=== PATIENT | male | born 1985 | race Caucasian/White ===

== ENCOUNTER 2016-10-10 18:58 | Emergency (ER) | payer BC ==
[2015-12-19 12:16] VITALS: BMI 23.5
[~2016-10-10 18:58] MED LIST: AMBIEN10 MG PO; ATIVAN1 MG PO; BACTRIM 400-801 TAB PO; BACTRIM DS TABL1 TAB PO; CLEOCIN HCL300 MG PO; FLORAJEN3 CAPS460 MG PO; HYZAAR 50-12.51 TAB PO; MULTIPLE VITAMI1 TA1 PO; NICODERM C1 PATCH .1 TRANSDERM; OMEPRAZOLE20 M1 PO; OXYCODONE HCL10 MG PO; PAXIL40 MG PO
[2016-10-10 19:33] LABS: BASOPHILS 0.6 % (0-2); EOSINOPHILS 4.4 % (0-7); HEMATOCRIT 39.6 % (42.0-54.0); HEMOGLOBIN 14.3 g/dL (13.5-17.5); IMMATURE GRANULOCYTES 0.2 % (0-5); LYMPHOCYTES 38.1 % (15-50); MCH 32.8 pg (26.0-34.0); MCHC 36.1 g/dL (31.0-37.0); MCV 90.8 fL (80.0-100.0); MEAN PLATELET VOLUME 9.6 fL (7.4-10.4); MONOCYTES 9.9 % (2-11); NEUTROPHILS 46.8 % (40-80); PLATELET COUNT 231 10x3/uL (130-400); RBC 4.36 10x6/uL (4.20-6.10); RDW 11.8 % (11.5-14.5); WBC 9.9 10x3/uL (4.8-10.8)
[2016-10-10 19:59] LABS: ALBUMIN 4.3 g/dL (3.4-5.0); ALKALINE PHOSPHATASE 71 U/L (46-116); ALT (SGPT) 51 U/L (10-68); BILIRUBIN - TOTAL 0.43 mg/dL (0.2-1.3); CALC OSMOLALITY 278 mosm/kg (275-300); CALCIUM 9.5 mg/dL (8.5-10.1); CARBON DIOXIDE 23.1 mmol/L (21.0-32.0); CHLORIDE - SERUM 103 mmol/L (98-107); CHOL - HDL RATIO 7.8 ratio (2.3-4.9); CHOLESTEROL, TOTAL 172 mg/dL (0-200); CKMB 0.5 U/L (0.0-3.6); CREATINE KINASE 167 UL (21-232); CREATININE - SERUM 1.2 mg/dL (0.6-1.3); GLUCOSE 119 mg/dL (74-106); HDL CHOLESTEROL 22 mg/dL (32-96); PROTEIN - SERUM 7.7 g/dL (6.4-8.2); SODIUM 138 mmol/L (136-145); UREA NITROGEN 19 mg/dL (7-18); eGFR NON AFRICAN AMERICAN 74 mL/min (90-120)
[2016-10-10 20:02] LABS: POTASSIUM - SERUM 2.9 mmol/L (3.5-5.1); TRIGLYCERIDE 683 mg/dL (30-200); TROPONIN-I < 0.017 ng/mL (0.000-0.060)
== END 2016-10-10 21:14 | disposition home or self-care (01) ==
LOC: D.ER 18:58
PROVIDERS: Emergency Medicine
DX: R07.89 Other chest pain (principal); E87.6 Hypokalemia; K21.9 Gastro-esophageal reflux disease without esophagitis; I10 Essential (primary) hypertension; F17.200 Nicotine dependence, unspecified, uncomplicated

== ENCOUNTER 2016-10-25 18:11 | Emergency (ER) | payer MEDICAID ==
[2015-12-19 12:16] VITALS: BMI 23.5
[2016-10-25 18:33] LABS: BASOPHILS 0.5 % (0-2); HEMATOCRIT 40.2 % (42.0-54.0); HEMOGLOBIN 14.3 g/dL (13.5-17.5); IMMATURE GRANULOCYTES 0.2 % (0-5); LYMPHOCYTES 35.3 % (15-50); MCH 32.6 pg (26.0-34.0); MCHC 35.6 g/dL (31.0-37.0); MCV 91.8 fL (80.0-100.0); MEAN PLATELET VOLUME 9.4 fL (7.4-10.4); MONOCYTES 10.9 % (2-11); NEUTROPHILS 49.1 % (40-80); PLATELET COUNT 253 10x3/uL (130-400); RBC 4.38 10x6/uL (4.20-6.10); RDW 12.1 % (11.5-14.5); WBC 9.7 10x3/uL (4.8-10.8)
[2016-10-25 18:49] LABS: ALBUMIN 4.2 g/dL (3.4-5.0); ALKALINE PHOSPHATASE 60 U/L (46-116); ALT (SGPT) 65 U/L (10-68); BILIRUBIN - TOTAL 0.39 mg/dL (0.2-1.3); CALC OSMOLALITY 284 mosm/kg (275-300); CALCIUM 9.4 mg/dL (8.5-10.1); CARBON DIOXIDE 23.5 mmol/L (21.0-32.0); CHLORIDE - SERUM 106 mmol/L (98-107); CREATININE - SERUM 1.1 mg/dL (0.6-1.3); GLUCOSE 102 mg/dL (74-106); POTASSIUM - SERUM 3.2 mmol/L (3.5-5.1); PROTEIN - SERUM 7.7 g/dL (6.4-8.2); SODIUM 143 mmol/L (136-145); UREA NITROGEN 13 mg/dL (7-18); eGFR NON AFRICAN AMERICAN 82 mL/min (90-120)
[2016-10-25 19:00] LABS: CHOL - HDL RATIO 7.5 ratio (2.3-4.9); CHOLESTEROL, TOTAL 180 mg/dL (0-200); CKMB 0.6 U/L (0.0-3.6); CREATINE KINASE 201 UL (21-232); HDL CHOLESTEROL 24 mg/dL (32-96); TRIGLYCERIDE 445 mg/dL (30-200)
[2016-10-25 19:03] LABS: TROPONIN-I < 0.017 ng/mL (0.000-0.060)
== END 2016-10-25 20:12 | disposition home or self-care (01) ==
LOC: D.ER 18:11
PROVIDERS: Emergency Medicine
DX: R07.89 Other chest pain (principal); K21.9 Gastro-esophageal reflux disease without esophagitis; I10 Essential (primary) hypertension; E87.6 Hypokalemia; F17.200 Nicotine dependence, unspecified, uncomplicated

== ENCOUNTER 2017-05-02 16:12 | Emergency (ER) | payer MEDICAID ==
[2015-12-19 12:16] VITALS: BMI 23.5
== END 2017-05-02 22:10 | disposition home or self-care (01) ==
LOC: D.ER 16:12
DX: R51 Headache (principal); K21.9 Gastro-esophageal reflux disease without esophagitis; I10 Essential (primary) hypertension

== ENCOUNTER 2018-06-28 16:54 | Emergency (ER) | payer SELFPAY ==
[~2018-06-28] VITALS: Ht 182.9 cm; Wt 84.1 kg
[2018-06-28 17:29] VITALS: Ht 182.9 cm; Wt 84.1 kg
[2018-06-28 17:52] LABS: BASOPHILS 0.4 % (0-2); EOSINOPHILS 2.2 % (0-7); HEMATOCRIT 43.7 % (42.0-54.0); HEMOGLOBIN 15.6 g/dL (13.5-17.5); IMMATURE GRANULOCYTES 0.2 % (0-5); LYMPHOCYTES 22.8 % (15-50); MCH 32.2 pg (26.0-34.0); MCHC 35.7 g/dL (31.0-37.0); MCV 90.3 fL (80.0-100.0); MEAN PLATELET VOLUME 9.4 fL (7.4-10.4); MONOCYTES 5.7 % (2-11); NEUTROPHILS 68.7 % (40-80); PLATELET COUNT 288 10x3/uL (130-400); RBC 4.84 10x6/uL (4.20-6.10); WBC 11.7 10x3/uL (4.8-10.8)
[2018-06-28 18:07] LABS: ALBUMIN 4.4 g/dL (3.4-5.0); ALKALINE PHOSPHATASE 63 U/L (46-116); ALT (SGPT) 24 U/L (10-68); AMYLASE - SERUM 37 U/L (25-115); BILIRUBIN - TOTAL 0.37 mg/dL (0.2-1.3); CALC OSMOLALITY 274 mosm/kg (275-300); CARBON DIOXIDE 28.5 mmol/L (21.0-32.0); CHLORIDE - SERUM 101 mmol/L (98-107); CREATININE - SERUM 1.1 mg/dL (0.6-1.3); GLUCOSE 98 mg/dL (74-106); LIPASE 227 U/L (73-393); POTASSIUM - SERUM 3.5 mmol/L (3.5-5.1); PROTEIN - SERUM 8.1 g/dL (6.4-8.2); SODIUM 138 mmol/L (136-145); UREA NITROGEN 11 mg/dL (7-18); eGFR NON AFRICAN AMERICAN 82 mL/min (90-120)
[2018-06-28 19:01] LABS: APPEARANCE CLEAR (CLEAR); BILIRUBIN NEGATIVE (NEGATIVE); COLOR YELLOW (YELLOW); GLUCOSE NEGATIVE (NEGATIVE); KETONE NEGATIVE (NEGATIVE); NITRITE NEGATIVE (NEGATIVE); PROTEIN NEGATIVE (NEGATIVE); UROBILINOGEN NORMAL (NORMAL)
[2018-06-28] MEDS ORDERED: ZOFRAN ODT4 MG/UDTAB PO (21:20)
[2018-06-28] MEDS ORDERED: BENTYL 20 MG TA20 MG PO (21:20)
[2018-06-28 21:35] VITALS: BP 129/78
== END 2018-06-28 21:43 | disposition home or self-care (01) ==
LOC: D.ER 16:54
PROVIDERS: Family Medicine
DX: A08.4 Viral intestinal infection, unspecified (principal); R11.2 Nausea with vomiting, unspecified

== ENCOUNTER 2019-01-20 17:37 | Emergency (ER) | payer OTHER ==
[~2019-01-20] VITALS: Ht 182.9 cm; Wt 88.6 kg
[~2019-01-20 17:37] MED LIST changes: +BENTYL 20 MG TA20 MG PO; +ZOFRAN ODT4 MG/UDTAB PO
[2019-01-20 17:49] VITALS: Ht 182.9 cm; Wt 88.6 kg
[2019-01-20 18:05] LABS: BASOPHILS 0.5 % (0-2); EOSINOPHILS 4.3 % (0-7); HEMATOCRIT 42.4 % (42.0-54.0); HEMOGLOBIN 14.9 g/dL (13.5-17.5); IMMATURE GRANULOCYTES 0.1 % (0-5); LYMPHOCYTES 34.7 % (15-50); MCH 32.7 pg (26.0-34.0); MCHC 35.1 g/dL (31.0-37.0); MCV 93.2 fL (80.0-100.0); MEAN PLATELET VOLUME 9.1 fL (7.4-10.4); MONOCYTES 11.9 % (2-11); NEUTROPHILS 48.5 % (40-80); PLATELET COUNT 283 10x3/uL (130-400); RBC 4.55 10x6/uL (4.20-6.10); RDW 12.7 % (11.5-14.5); WBC 8.3 10x3/uL (4.8-10.8)
[2019-01-20 18:14] LABS: APTT 22.2 SECONDS (22.8-39.4); INR 0.95 (0.85-1.17); PROTIME 12.2 SECONDS (11.6-15.0)
[2019-01-20 18:17] LABS: ALBUMIN 3.9 g/dL (3.4-5.0); ALKALINE PHOSPHATASE 53 U/L (46-116); ALT (SGPT) 94 U/L (10-68); CALC OSMOLALITY 277 mosm/kg (275-300); CALCIUM 8.6 mg/dL (8.5-10.1); CARBON DIOXIDE 28.5 mmol/L (21.0-32.0); CHLORIDE - SERUM 105 mmol/L (98-107); GLUCOSE 111 mg/dL (74-106); POTASSIUM - SERUM 3.5 mmol/L (3.5-5.1); PROTEIN - SERUM 7.1 g/dL (6.4-8.2); SODIUM 140 mmol/L (136-145); UREA NITROGEN 6 mg/dL (7-18); eGFR NON AFRICAN AMERICAN > 90 mL/min (90-120)
[2019-01-20 18:28] LABS: CKMB 1.6 U/L (0.0-3.6); CREATINE KINASE 250 UL (21-232); MAGNESIUM - SERUM 1.7 mg/dL (1.8-2.4)
[2019-01-20 18:30] LABS: TROPONIN-I < 0.017 ng/mL (0.000-0.060)
[2019-01-20 18:52] LABS: THYROID STIMULATING HORMONE 0.76 uIU/mL (0.36-3.74)
[2019-01-20] MEDS ORDERED: PROTONIX20 MG PO (19:11)
[2019-01-20 19:39] VITALS: BP 119/72
== END 2019-01-20 19:39 | disposition home or self-care (01) ==
LOC: D.ER 17:37
PROVIDERS: Family Medicine
DX: R07.9 Chest pain, unspecified (principal)

== ENCOUNTER 2019-01-22 17:40 | Observation (INO) | payer OTHER ==
[~2019-01-22] VITALS: Ht 182.9 cm; Wt 88.6 kg
--- NOTE | ~2019-01-22 | HEMODYNAMI ---
PATIENT:TACHO TREJO MEDICAL RECORD: [id number] : 83 LOCATION:[facility] D.2122 [facility]# [id number] ADMISSION DATE: 01/22/19 Generatedon:01/23/201912:03 Patient name: TACHO TREJO Patient #: [id number] SSN: [id number] : 1985 Date of study: 01/23/2019 Page: Of Hemodynamic Procedure Report Patient Data Patient Demographics Procedure consent was obtained First Name: TACHO Gender: Male Last Name: NEIL : 1985 Middle Initial: DAYSI Age: 33 year(s) Patient #: [id number] Race: SSN: [id number] Additional ID: [id number] Contact details [address]: [address] [place] [address] State: [place] City: [place] Zip code: [address] Past Medical History Allergies: No known allergies Admission Admission Data Admission Date: 01/22/2019 Admission Time: 21:34 Arrival Date: 01/23/2019 Arrival Time: 10:45 Admit Source: Emergency Insurance Payor: Private department health insurance Room #: D.2122 [facility] #: [id number] Height (in.): 72 BSA: 2.11 (m2) Height (cm.): 182.88 BMI: 26.45 (kg/m2) Weight (lbs.): 195 Weight (kg.): 88.45 Lab Results Lab Result Date: 01/23/2019 Lab Result Time: 0:00 Biochemistry Name Units Result Min Max BUN mg/dl 9 --(*---)-- 7 18 eGFR ml/min 81 *-(----)-- 90 120 NONAFRICAN CBC Name Units Result Min Max Hemoglobin g/dl 14.4 --(*---)-- 13.5 17.5 Procedure Procedure Types Cath Procedure Diagnostic Procedure C LH w/Coronaries Sedation Charges Moderate Sedation up to 15 minutes Procedure Description Procedure Date Procedure Date: 01/23/2019 Procedure Start Time: 11:43 Procedure End Time: 11:58 Procedure Staff Name Function Pipo Pinto MD Performing Physician Emeka Brown RT Monitor Harriet Serrato RT Monitor Shanique Hurley RN Nurse Betsy Dangelo RT Scrub Indication Angina Chest pain Procedure Data Cath Procedure Fluoroscopy Diagnostic fluoroscopy Total fluoroscopy Time: 1.7 time: 1.7 min min Diagnostic fluoroscopy Total fluoroscopy dose: dose: 135.55 mGy 135.55 mGy Contrast Material Contrast Material Type Amount (ml) Isovue 300 47 Entry Location Entry Primary Successful Side Size Upsize Upsize Entry Closure Neely ccessful Closure Location (Fr) 1 (Fr) 2 (Fr) Remarks Device Remarks Radial Right 6 Fr Mechanical artery Short Compression Estimated blood loss: 10 ml Diagnostic catheters Device Type Used For End Catheter Placement DIAGNOSTIC Enterprise 110cm 5 Procedure Fr catheter ([id number]) Procedure Complications No complications Procedure Medications Medication Administration Route Dosage 0.9% NaCl I.V. 100 ml/hr Oxygen etCO2 Nasal cannula 2 l/min Lidocaine 2% added to field 20 Heparin Flush Bag added to field 2 bags (1000units/500ml NS) Radial Cocktail added to field 1 syringe (Verapamil 2mg/Nitro 400mcg/Heparin 1500units) Versed I.V. 2 mg Fentanyl I.V. 100 mcg Versed I.V. 2 mg Fentanyl I.V. 50 mcg Fentanyl I.V. 50 mcg Hemodynamics Rest BSA: 2.11 (m2) HGB: 14.4 (g/dl) O2 Consumption: Estimated: 273.25 (ml/min) O2 Co nsumption indexed: Estimated:129.5 (ml/min/m) Heart Rate: 84 (bpm) Pressure Samples Time Site Value (mmHg) Purpose Heart Use Rate(bpm) 11:48 LV 104/33,16 Snapshot 107 11:48 AO 109/75(89) Pullback 85 11:48 LV 114/12,17 Pullback 85 Gradients Valve Time Site 1 Site 2 Mean SEP/DFP Peak To Heart Use (mmHg) (sec/min) Peak Rate (mmHg) (bpm) Aortic 11:48 LV AO 9 14 5 85 114/12,17 109/75(89) Calculations Valve P-P Mean Valve Index Valve Source Name Gradient Area Flow (cm2) Aortic 5 9 5 9 Snapshots Pre Cath Intra NCS Post Cath Vital Signs Time Heart Resp SPO2 etCO2 NIBP (mmHg) Rhythm Pain Sedation Rate (ipm) (%) (mmHg) Status Level (bpm) 10:57:33 84 17 99 35.5 143/91(122) NSR 0 (11) 10(A) , No pain 11:01:44 80 16 98 45.3 128/87(101) NSR 0 (11) 10(A) , No pain 11:05:58 73 16 96 39.2 128/74(97) NSR 0 (11) 10(A) , No pain 11:10:10 73 17 96 57.4 135/80(97) NSR 0 (11) 10(A) , No pain 11:14:22 77 18 97 57.4 142/86(107) NSR 0 (11) 10(A) , No pain 11:18:38 76 19 96 57.4 137/75(110) NSR 0 (11) 10(A) , No pain 11:22:54 81 19 98 23.4 135/80(113) NSR 0 (11) 10(A) , No pain 11:27:02 77 16 98 55.9 140/89(103) NSR 0 (11) 10(A) , No pain 11:31:18 76 19 97 60.4 136/76(100) NSR 0 (11) 10(A) , No pain 11:35:30 81 17 98 61.9 138/78(117) NSR 0 (11) 10(A) , No pain 11:39:42 84 17 98 61.2 133/88(107) NSR 0 (11) 10(A) , No pain 11:43:56 82 11 99 57.4 133/71(114) NSR 0 (11) 10(A) , No pain 11:48:08 90 10 98 60.4 119/82(91) NSR 0 (11) 10(A) , No pain 11:52:18 93 11 97 43.8 131/76(100) NSR 0 (11) 10(A) , No pain 11:56:28 90 13 97 47.5 130/73(100) NSR 0 (11) 10(A) , No pain Medications Time Medication Route Dose Verified Delivered Reason Notes E ffectiveness by by 10:56:38 0.9% NaCl I.V. 100 Pipo Shanique used for ml/hr Blair Xavi procedure MD VICTORIA 10:56:45 Oxygen etCO2 2 l/min Pipo Dingyla used for Nasal Blair Xavi procedure cannula MD VICTORIA 10:56:50 Lidocaine 2% added 20ml Pipo Foss for local to vial Blair Blair anesthetic field MD CASTLE 10:56:54 Heparin Flush added 2 bags Pipo Foss used for Bag to [facility] procedure (1000units/500ml field MD [place] NS) 10:56:59 Radial Cocktail added 1 Pipo Foss used for (Verapamil to syringe Blair Blair procedure 2mg/Nitro field MD [place] 400mcg/Heparin 1500units) 11:42:14 Versed I.V. 2 mg Pipo Shanique for BlairGideon Hurley sedation MD VICTORIA 11:42:20 Fentanyl I.V. 100 mcg Pipo Dingyla for BlairGideon Hurley sedation MD VICTORIA 11:47:10 Versed I.V. 2 mg Pipo Dingyla for BlairGideon Hurley sedation MD VICTORIA 11:47:15 Fentanyl I.V. 50 mcg Pipo Dingyla for BlairGideon Hurley sedation MD VICTORIA 11:51:29 Fentanyl I.V. 50 mcg Pipo Shanique for BlairGideon Hurley sedation MD VICTORIAtechnology and engineering teacher Log Time Note 10:15:14 Diagnostic Cath Status : Urgent 10:16:28 Indication : Angina 10:35:08 Shanique Hurley RN sent for patient. Start room use. 10:43:24 Indication : Chest pain 10:44:27 Admit Source: Emergency department 10:45:04 Procedure Status Urgent Heart Cath (IP). 10:45:31 Time tracking: Regular hours (M-F 7:00 - 5:00) 10:45:37 Plan of Care:Hemodynamics will remain stable., Cardiac rhythm will remain stable., Comfort level will be maintained., Respiratory function will remain adequate., Patient/ family verbilizes understanding of procedure., Procedure tolerated without complication., Recovers from procedure without complications.. 10:46:39 Lab Result : Hemoglobin 14.4 g/dl 10:46:39 Lab Result : eGFR NONAFRICAN 81 ml/min 10:46:39 Lab Result : BUN 9 mg/dl 10:47:06 Arrival Date: 01/23/2019 10:45:00 AM 10:47:23 Insurance Payor : Private health insurance 10:47:46 Patient Height : 72 inches 10:48:12 Patient Weight : 195 lbs 10:49:00 Patient received from Med II to CCL 3 Alert and oriented. Tansferred to table in Supine position. 10:49:08 Signed procedure consent form obtained from patient. 10:49:09 Warm blankets applied, and jose hugger turned on for patient comfort. 10:49:10 Correct patient and procedure confirmed by team. 10:49:11 ECG and BP/O2 sat monitors applied to patient. 10:56:28 Vital chart was started 10:56:38 0.9% NaCl 100 ml/hr I.V. was administered by Shanique Hurley RN; used for procedure; Verbal order read back and verified. 10:56:45 Oxygen 2 l/min etCO2 Nasal cannula was administered by Shanique Hurley RN ; used for procedure; Verbal order read back and verified. 10:56:50 Lidocaine 2% 20ml vial added to field was administered by Pipo Pinto MD; for local anesthetic; Verbal order read back and verified. 10:56:54 Heparin Flush Bag (1000units/500ml NS) 2 bags added to field was administered by Pipo Pinto MD; used for procedure; Verbal order read back and verified. 10:56:59 Radial Cocktail (Verapamil 2mg/Nitro 400mcg/Heparin 1500units) 1 syring e added to field was administered by Pipo Pinto MD; used for procedure; Verbal order read back and verified. 10:59:11 Baseline sample Acquired. 10:59:18 Rhythm: sinus rhythm 10:59:42 Baseline sample Acquired. 10:59:48 Full Disclosure recording started 10:59:49 - 11:00:27 H&P Date Dictated: 01/23/2019 Within 30 days and on chart.. 11:00:29 Pre-procedure instructions explained to patient. 11:05:04 Pre-op teaching completed and patient verbalized understanding. 11:05:33 Family in patients room. 11:05:47 Patient NPO since Midnight. 11:05:59 Patient allergic to No known allergies 11:06:03 Is the patient allergic to Iodine/contrast media? No. 11:06:12 Is patient on blood thinner?No 11:06:39 ACC The patient was administered the following blood thiners within the last 24 hours: None 11:07:00 Patient diabetic? No. 11:07:04 ----Pre-sedation anethsthesia assessment.---- 11:07:12 Previous problem with sedation/anesthesia? No ? 11:07:15 Snore? Yes 11:07:17 Sleep apnea? No 11:07:19 Deviated septum? No 11:07:21 Opens mouth fully? Yes 11:07:22 Sticks out tongue? Yes 11:07:36 Airway obstruction? Yes asthma as child 11:07:42 Dentures? No ? 11:07:50 Pre procedure: right dorsailis pedis pulse 2+ Normal; easily identifiable; not easily obliterated 11:08:07 Modified Kel's test Radial < 7 seconds 11:08:16 Patient pain scale 0/10 ?. 11:09:06 IV patent on arrival in left forearm with 0.9% NaCl at [facility]. 11:09:18 Lab results completed and on chart. 11:09:23 Right Radial & Right Groin area was prepped with chlora-prep and draped in sterile fashion 11:09:45 Alarms reviewed by R. N. 11:09:46 Sharps counted by scrub and verified by R.N. 11:12:07 Use device set Radial Dx or PCI 11:12:10 ACIST Syringe (67425) opened to sterile field. 11:12:11 Medline Cath Pack ([id number]) opened to sterile field. 11:12:12 Bag Decanter () opened to sterile field. 11:12:13 ACIST Hand Control (25422) opened to sterile field. 11:12:14 ACIST Manifold (36741) opened to sterile field. 11:12:16 Tegaderm 4 x 4 (1626W) opened to sterile field. 11:12:18 MBrace Wrist Support ([id number]) opened to sterile field. 11:12:25 EMERALD Guide Wire (240-969) opened to sterile field. 11:12:27 SHEATH 6FR MARQUIS (9931067) opened to sterile field. 11:18:15 2) 60-89 Mildly reduced kidney function, and other findings (as for stage 1) point to kidney disease. 11:18:22 Maximum allowable contrast dose (3.7 X eGFR X 0.75)224 ml. 11:27:41 Zero performed for pressure channel P1 11:40:27 Physician arrived 11:40:28 --------ALL STOP TIME OUT------ 11:40:29 Final Timeout: patient, procedure, and site verified with staff and physician. All members of the team are in agreement. 11:40:32 Right Radial & Right Groin site verified by team. 11:40:38 Fire Safety Assessment: A--An alcohol-based skin anteseptic being used preoperatively., C--Open oxygen or nitrous oxide is being used., D--An ESU, laser, or fiber-optic light is being used. 11:40:51 Physical assessment completed. ASA score P 2 - A patient with mild systemic disease as per Pipo Pinto MD. 11:41:00 Sedation plan: IV Moderate Sedation Medication:Versed, Fentanyl 11:42:14 Versed 2 mg I.V. was administered by Shanique Hurley RN; for sedation; Verbal order read back and verified. 11:42:20 Fentanyl 100 mcg I.V. was administered by Shanique Hurley RN; for sedation; Verbal order read back and verified. 11:43:19 Procedure started. 11:43:41 Local anesthetic to right radial artery with Lidocaine 2% by Pipo Pinto MD.INITIAL ACCESS ONLY 11:45:49 A 6 Fr Short sheath was inserted into the Right Radial artery 11:46:30 A DIAGNOSTIC Enterprise 110cm 5 Fr catheter (646715) was advanced over the wire and used for Procedure. 11:47:10 Versed 2 mg I.V. was administered by Shanique Hurley RN; for sedation; Verbal order read back and verified. 11:47:15 Fentanyl 50 mcg I.V. was administered by Shanique Hurley RN; for sedation ; Verbal order read back and verified. 11:48:31 LV hemodynamics recorded. 11:49:03 EF : 55 % 11:49:07 LV gram done using BASSETT 11:49:13 Injector settings: Ml/sec: 5, Volume: 15, 11:50:00 LCA angiography performed. 11:50:21 Injector settings: Ml/sec: 3, Volume: 5, 11:51:24 RCA angiography performed. 11:51:29 Fentanyl 50 mcg I.V. was administered by Shanique Hurley RN; for sedation ; Verbal order read back and verified. 11:51:37 Injector settings: Ml/sec: 3, Volume: 5, 11:51:42 Catheter removed. 11:52:00 ZEPHYR REGULAR TR BAND (926230) opened to sterile field. 11:52:01 Procedure ended.(Physican Out) 11:52:18 Sheath removed intact; hemostasis achieved with Mechanical Compression to the Right Radial artery. 11:53:20 Fluoroscopy time 01.70 minutes. 11:53:30 Fluoroscopy dose: 135.55 mGy 11:53:30 Flurop Dose total: 135.55 11:53:39 Dose Area Product 919.26 mGy/cm. 11:53:47 Contrast amount:Isovue 300 47ml. 11:53:51 Maximum allowable dose exceeded? No. 11:53:53 Sharps counted by scrub and verified by R.N. 11:54:47 Insertion/operative site no bleeding no hematoma. 11:55:45 Post right radial artery:stable 11:55:53 [place] band inflated with 9cc of air. 11:56:09 Post Procedure Pulses reassessed and unchanged 11:56:21 Post-procedure physical assessment completed. ASA score P 2 - A patient with mild systemic disease as per Pipo Pinto MD. 11:56:25 Post procedure rhythm: sinus rhythm 11:56:32 Estimated blood loss: 10 ml 11:56:34 Post procedure instruction explained to patient.Patient verbalizes understanding. 11:56:36 Patient needs reinforcement of post procedure teaching. 11:56:57 Procedure type changed to Cath procedure, Diagnostic procedure, LHC, LH C w/Coronaries, Sedation Charges, Moderate Sedation up to 15 minutes 11:57:01 Procedure and supply charges have been captured, reviewed, submitted an d are correct. 11:57:50 Procedure Complication : No complications 11:57:54 Vital chart was stopped 11:57:55 See physician's report for complete and final results. 11:57:58 Report given to Med II. 11:58:03 Patient transfered to [facility] II with Bed. 11:58:08 Procedure ended. 11:58:08 Full Disclosure recording stopped 12:01:26 End room use (Document Last) Device Usage Item Name Manufacture Quantity Catalog Hospital Part Current Minima l Lot# / Number Charge Number Stock Stock Serial# Code ACIST Acist 1 06032 [id number] 195825 [id number] 20 Syringe Medical (75210) Systems Inc Medline Medline 1 [id number] [id number] 40174 909947 5 Cath Pack ([id number]) Bag Microtek 1 2001S 794388 70868 600770 5 Decanter Medical Inc. () ACIST Hand Acist 1 11932 076002 082042 097562 5 Control Medical (57558) Systems Inc ACIST Acist 1 76518 464606 043373 597576 5 Manifold Medical (11617) Systems Inc Tegaderm 4 3M 1 1626W 505595 868774 458471 5 x 4 (1626W) MBrace Advanced 1 140-0250-00 470847 28415 322914 5 Wrist Vascular Support Dynamics ([id number]) EMERALD Cardinal 1 502-455 087312 093055 882250 5 Guide Wire Health (502-455) SHEATH 6FR Cardinal 1 2777614 457461 7341490 708450 5 [facility] Health (4957203) DIAGNOSTIC Terumo 1 40-5013 885021 932015 461601 5 Enterprise 110cm 5 Fr catheter (974568) ZEPHYR Cardinal 1 100152 626155 2181656 909934 5 REGULAR TR Health BAND (347191) Signature Audit [place] Stage Time Signature Unsigned Intra-Procedure 01/23/2019 Harriet 12:01:53 PM Ama RT(R) (CV) Intra-Procedure 01/23/2019 Shanique Hurley 12:02:30 PM RN Intra-Procedure 01/23/2019 Pipo Cardozo 12:03:03 PM Gideon [facility] [address] [place] [address]
[~2019-01-22 17:40] MED LIST changes: +PROTONIX20 MG PO
[2019-01-22 18:14] LABS: BASOPHILS 0.7 % (0-2); HEMATOCRIT 42.3 % (42.0-54.0); HEMOGLOBIN 14.7 g/dL (13.5-17.5); IMMATURE GRANULOCYTES 0.3 % (0-5); LYMPHOCYTES 34.1 % (15-50); MCH 32.6 pg (26.0-34.0); MCHC 34.8 g/dL (31.0-37.0); MCV 93.8 fL (80.0-100.0); MEAN PLATELET VOLUME 9.3 fL (7.4-10.4); MONOCYTES 12.5 % (2-11); NEUTROPHILS 48.4 % (40-80); PLATELET COUNT 292 10x3/uL (130-400); RBC 4.51 10x6/uL (4.20-6.10); RDW 12.8 % (11.5-14.5); WBC 9.5 10x3/uL (4.8-10.8)
[2019-01-22 18:23] LABS: APTT 21.6 SECONDS (22.8-39.4); INR 0.91 (0.85-1.17); PROTIME 11.8 SECONDS (11.6-15.0)
[2019-01-22 18:31] LABS: ALKALINE PHOSPHATASE 46 U/L (46-116); ALT (SGPT) 128 U/L (10-68); BILIRUBIN - TOTAL 0.27 mg/dL (0.2-1.3); CALC OSMOLALITY 278 mosm/kg (275-300); CARBON DIOXIDE 30.4 mmol/L (21.0-32.0); CHLORIDE - SERUM 104 mmol/L (98-107); GLUCOSE 95 mg/dL (74-106); POTASSIUM - SERUM 3.7 mmol/L (3.5-5.1); PROTEIN - SERUM 7.3 g/dL (6.4-8.2); SODIUM 141 mmol/L (136-145); UREA NITROGEN 6 mg/dL (7-18); eGFR NON AFRICAN AMERICAN > 90 mL/min (90-120)
[2019-01-22 18:45] LABS: CREATINE KINASE 214 UL (21-232); MAGNESIUM - SERUM 1.7 mg/dL (1.8-2.4)
[2019-01-22 18:46] LABS: TROPONIN-I < 0.017 ng/mL (0.000-0.060)
[2019-01-22 20:35] VITALS: BP 160/79
--- NOTE | 2019-01-22 20:56 | NUR ---
PT REPORTS CHEST PAIN 0/10. VSS BP 155/77 HR 89
[2019-01-22] MEDS ORDERED: POTA CHLORIDE ER 10M (22:24)
[2019-01-22] MEDS ORDERED: TESTOST CYP 200MG/ML (22:24)
[2019-01-22] MEDS ORDERED: ADDERALL 20 MG20 M1 (22:25)
[2019-01-22] MEDS ORDERED: VYVANSE70 MG PO (22:26)
[2019-01-22] MEDS ORDERED: TRICOR145 MG PO (22:26)
[2019-01-22] MEDS ORDERED: VRAYLAR3 MG OTR (22:28)
[2019-01-22] MEDS ORDERED: BAYER CHEWABLE81 MG PO (22:29)
[2019-01-22] MEDS ORDERED: NEXIUM40 MG PO (22:29)
--- NOTE | 2019-01-22 22:30 | NUR ---
RECEIVED FROM ER, WILL ASSUME CARE OF PT, PLACED ON HVIYOYFS-XS-36, IV-LAC-SL, PROVIDE A DRINK AND SANDWICH, HISTORY AND MEDS COMPLETE, DENIES ANY NEEDS AT THIS TIME, BED IS LOW, SRX1, CALL LIGHT IN REACH, WILL CONTINUE PLAN OF CARE
[2019-01-22 23:55] LABS: CKMB 1.2 U/L (0.0-3.6); CREATINE KINASE 197 UL (21-232)
[2019-01-22 23:56] LABS: TROPONIN-I < 0.017 ng/mL (0.000-0.060)
[2019-01-23 00:30] VITALS: BP 117/66
[2019-01-23 00:35] VITALS: BP 138/84
[2019-01-23 01:21] VITALS: BP 138/84; BMI 26.5
--- NOTE | 2019-01-23 03:53 | NUR ---
I have reviewed this patient and I concur with the Shift Assessment completed by the Licensed Practical Nurse today this shift.
[2019-01-23 04:24] VITALS: BP 140/84
[2019-01-23 05:44] LABS: BASOPHILS 0.5 % (0-2); EOSINOPHILS 4.3 % (0-7); HEMATOCRIT 43.5 % (42.0-54.0); HEMOGLOBIN 14.4 g/dL (13.5-17.5); IMMATURE GRANULOCYTES 0.4 % (0-5); LYMPHOCYTES 37.4 % (15-50); MCH 31.4 pg (26.0-34.0); MCHC 33.1 g/dL (31.0-37.0); MEAN PLATELET VOLUME 9.4 fL (7.4-10.4); MONOCYTES 10.4 % (2-11); PLATELET COUNT 289 10x3/uL (130-400); RBC 4.58 10x6/uL (4.20-6.10); RDW 12.9 % (11.5-14.5); WBC 9.9 10x3/uL (4.8-10.8)
[2019-01-23 06:19] LABS: ALBUMIN 3.7 g/dL (3.4-5.0); ALKALINE PHOSPHATASE 44 U/L (46-116); ALT (SGPT) 119 U/L (10-68); BILIRUBIN - TOTAL 0.19 mg/dL (0.2-1.3); CALC OSMOLALITY 283 mosm/kg (275-300); CALCIUM 8.7 mg/dL (8.5-10.1); CARBON DIOXIDE 30.2 mmol/L (21.0-32.0); CHLORIDE - SERUM 105 mmol/L (98-107); CREATININE - SERUM 1.1 mg/dL (0.6-1.3); GLUCOSE 91 mg/dL (74-106); POTASSIUM - SERUM 4.2 mmol/L (3.5-5.1); PROTEIN - SERUM 6.8 g/dL (6.4-8.2); SODIUM 143 mmol/L (136-145); eGFR NON AFRICAN AMERICAN 81 mL/min (90-120)
[2019-01-23 06:20] LABS: UREA NITROGEN 9 mg/dL (7-18)
--- NOTE | 2019-01-23 07:08 | NUR ---
PT AWAKE AND ORIENTED, NO COMPLAINTS/CONCERNS. ALL QUESTIONS ANSWERED, AT BEDSIDE. CL IN REACH, SRX2.
[2019-01-23 08:30] VITALS: BP 128/86
--- NOTE | 2019-01-23 10:48 | NUR ---
PT OFF TO HAT BRUSHER MACHINE.
--- NOTE | 2019-01-23 11:44 | NUR ---
I have reviewed this patient and I concur with the Shift Assessment completed by the Licensed Practical Nurse today this shift.
--- NOTE | 2019-01-23 12:13 | NUR ---
PT BACK IN ROOM, EXAMINED RIGHT RADIAL CATH SITE, STILL ACTIVELY BLEEDING. PLACED 2ML AIR IN CATH, NO LONGER BLEEDING. WILL CONTINU TO MONITOR.
--- NOTE | 2019-01-23 14:17 | NUR ---
PT TR BAND WAS SLID OFF TE CENTER OF THE INSERTION POINT, CALLED TRANSPORTATION AGENT PT WOULD NOT STOP BLEEDING. TRANSPORTATION AGENT NURSE CAME AND REDID THE DEVICE, PT IS NO LONGER ACTIVELY BLEEDING.
[2019-01-23 14:28] VITALS: Ht 182.9 cm; Wt 88.6 kg
[2019-01-23 16:52] VITALS: BP 122/62
--- NOTE | 2019-01-23 17:35 | NUR ---
PT ESCORTED OUT VIA WHEELCHAIR TO 'S POV.
--- NOTE | 2019-01-24 08:57 | MORECARE ---
CASE MANAGEMENT DISCHARGE SUMMARY PATIENT: TACHO TREJO UNIT: [id number] ADM DATE: 01/22/19 AGE: 33 : [birth year] SEX: M ROOM/BED: D.2122 AUTHOR: MADDI CLARK PHYSICIAN: REFERRING PHYSICIAN: ARNOLD COLMENARES MD DATE OF SERVICE: 01/24/19 Discharge Plan Patient Name: TACHO TREJO Facility: [facility]:[place] : 1985 Planned Disposition: Home Anticipated Discharge Date: 01/23/19 Discharge Date: 01/23/2019 Expected LOS: 1 Initial Reviewer: [email or web address] Initial Review Date: 01/24/2019 Generated: 01/24/19 9:56 am Patient Name: TACHO TREJO Page 57788 at 0857 All edits/amendments must be made on the electronic document DICTATION DATE: 01/24/19855 PRACTICE CONSULTANT: NIKI 01/24/19855 RPT#: [id number] DC DATE:01/23/19 STATUS: DIS IN [facility] [address] [place] [address] END OF REPORT
--- NOTE | 2019-01-25 11:08 | CN ---
PATIENT NAME:TACHO TREJO MEDICAL RECORD: [id number] : [birth year] LOCATION:D. D.2122 ADMIT DATE: 01/22/19 ACCOUNT: [id number] CONSULTING PHYSICIAN: AGUS SAMUEL MD REFERRING PHYSICIAN: ARNOLD COLMENARES MD DATE OF CONSULTATION: 01/23/2019 HISTORY OF PRESENT ILLNESS: This is a 33-year-old gentleman with no known history of coronary artery disease. He has actually been seen with a chest pain in the office on 2 separate occasions with negative noninvasive workup at that time once in 2016 and once in 2018, had onset of chest pain. Actually began Wednesday, it was intermittent, was seen in the ER with plans to follow up in the clinic, however, presented again with rest symptomology on the evening of admission. We were asked to see him concerning his cardiovascular status. PAST MEDICAL HISTORY: Includes, 1. History of hypertension. 2. Hyperlipidemia. 3. Hypogonadism. ALLERGIES: None known. MEDICATIONS: Testosterone injection, TriCor 145 every day, Hyzaar 50/12.5 every day, Adderall 20 one every day, Vraylar 3 mg 1/2 tablet at bedtime, aspirin 81 every day, Ativan 0.5 p.o. daily, Vyvanse 70 mg p.o. daily, Paxil 40 every day, Ambien 10 at bedtime. SOCIAL HISTORY: Smokes about a pack a day, nondrinker. Works part time receptionist. Easily takes care of all his ADLs. REVIEW OF SYSTEMS: The patient reports easy bruising but reports no swollen glands. The patient reports no fever, no night sweats, no significant weight gain, no significant weight loss. No significant exercise tolerance. The patient reports no dry eyes, no irritation, no vision change. Patient reports no difficulty hearing and no ear pain. Patient reports no frequent nose bleeds or nose and sinus problems. Patient reports on arm pain on exertion. No shortness of breath while lying down. No history of heart murmur. Patient reports no cough, no wheezing or coughing up blood. Patient reports no abdominal pain, no vomiting. Normal appetite. No diarrhea and not vomiting blood. No nausea and no constipation. Patient reports no incontinence. No difficulty urinating. No hematuria. No increased frequency. Patient reports no muscle aches. No weakness, no arthralgias, no back pain. No swelling of the extremities. Patient reports no abnormal mole, no jaundice, no rashes. Reports no loss of consciousness. No weakness and no numbness. No seizures, dizziness, or headaches. The patient reports no depression, no sleep disturbance, feeling safe in a relationship and no alcohol abuse. Patient reports on fatigue. Reports no runny nose or sinus pressure. No itching, no hives, and no frequent sneezing. PHYSICAL EXAMINATION: GENERAL: Pleasant, in no acute distress, appears stated age. VITAL SIGNS: 120/86, pulse 79 and regular. HEENT: Normocephalic, atraumatic. NECK: No JVD or bruit. HEART: Regular. CONSULT REPORT [id number] TACHO TREJO LUNGS: Good excursion. ABDOMEN: Soft, nontender. EXTREMITIES: Pulse 2+ with no edema. IMPRESSION: Hypertension, hyperlipidemia, acute coronary syndrome, multiple risk factors including family history, hypertension, hyperlipidemia, ongoing tobacco use. Previous history of negative workup. PLAN: For angiography, intervention based on above. TRANSINT:[id number] Voice Confirmation ID: [id number] DOCUMENT ID: [id number] AGUS SAMUEL MD at 1108 CC: [id number] DICTATION DATE: 01/23/19 1241 PEDIATRIC ONCOLOGY NURSE: 01/23/192154 DIS IN 01/23/19 [address] [place] [address]
--- NOTE | 2019-01-25 11:08 | OP ---
PATIENT NAME: TACHO TREJO MEDICAL RECORD: [id number] :83 LOCATION:D.M2 D.2 ADMISSION DATE:01/22/19 SURGEON: AGUS ASMUEL MD DATE OF OPERATION: 01/23/2019 PROCEDURE: Left heart catheterization, selective coronary angiography, and right radial approach. CATHETERS: Radial sheath, [place] catheter. The procedure was well tolerated. The patient returned to spears. Sheath removed. TR band was placed. FINDINGS: Left ventriculography in 30-degree BASSETT view: Normal wall motion. Normal systolic function. CORONARY ANATOMY: LEFT MAIN: Left main is free of disease. LAD: Free of disease in the diagonal system. CIRCUMFLEX: Free of disease in the marginal system. RIGHT CORONARY ARTERY: Dominant artery, gives rise to PDA, free of disease. IMPRESSION: Normal left ventricular system. Normal coronary anatomy. TRANSINT:[id number] Voice Confirmation ID: [id number] DOCUMENT ID: [id number] AGUS SAMUEL MD at 1108 CC: [id number] DICTATION DATE: 01/23/19 1242 PROMOTION MANAGER: 01/23/19 2133 DIS IN 01/23/19 [facility] [address] [place] [address]
== END 2019-01-23 17:35 | disposition home or self-care (01) ==
LOC: D.ER 17:40 → D.M2 21:34 → OBSVTIME 21:34 → D.ER 22:07 → D.M2 01-23 17:35
PROVIDERS: Emergency Medicine; Family Medicine; ADMIT Internal Medicine Nephrology; ATTEND Internal Medicine Nephrology
DX: I24.9 Acute ischemic heart disease, unspecified (principal); I20.9 Angina pectoris, unspecified; I10 Essential (primary) hypertension; E78.5 Hyperlipidemia, unspecified; K21.9 Gastro-esophageal reflux disease without esophagitis; F41.9 Anxiety disorder, unspecified; F17.213 Nicotine dependence, cigarettes, with withdrawal